=== PATIENT | male | born 1940 | race Caucasian/White ===

== ENCOUNTER 2020-08-16 14:35 | Outpatient (REF) | payer MEDICARE, MEDICAID, SELFPAY ==
--- NOTE | ~2020-08-16 | CT_ITS ---
EXAMINATION: CT HEAD WITHOUT CONTRAST CLINICAL INFORMATION: Aphasia. COMPARISON: No relevant prior studies. TECHNIQUE: Contiguous axial imaging was performed from the skull base to vertex without intravenous administration of contrast. This CT examination was performed using dose optimization techniques as appropriate, variously including the following: *Automated exposure control *Adjustment of mA and/or kV according to patient size (this includes techniques or standardized protocols for targeted exams where dose is matched to indication/reason for exam; i.e. 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 Additional encephalomalacia noted in the right frontal lobe with ex vacuo dilatation of the frontal horn of the right lateral ventricle. There is no evidence of acute intracranial hemorrhage or acute territorial infarction. No abnormal mass effect or midline shift is seen. Diffuse parenchymal volume loss noted. No extra-axial fluid collections are identified. No evidence of hydrocephalus. Moderate chronic white matter microangiopathic changes noted. The osseous structures and soft tissues are normal. The mastoid air cells and visualized portions of the paranasal sinuses are well aerated. CT/CT head/brain wo con IMPRESSION: No acute intracranial hemorrhage or acute territorial infarction. 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 Diffuse parenchymal volume loss and moderate chronic white matter microangiopathy. The possibility of a focal acute ischemic process cannot be ruled out on the basis of this study, given extent of chronic disease.
== END 2020-08-16 14:36 | disposition home or self-care (01) ==
LOC: HO.CT 14:35
PROVIDERS: Visit Provider Psychiatry & Neurology Neurology
DX: R47.01 Aphasia (principal)
CPT/HCPCS: 70450